=== PATIENT | male | born 1945 | race African-American/Black ===

== ENCOUNTER 2017-06-10 22:17 | Emergency (ER) | payer SELFPAY | END 2017-06-11 00:34 | disposition left against medical advice (07) | LOC: E/R 22:17 | DX: Z53.21 Procedure and treatment not carried out due to patient leaving prior to being seen by health care provider (principal) | CPT/HCPCS: 82962 ==

== ENCOUNTER 2017-06-12 09:58 | Emergency (ER) | payer OTHER ==
[2017-06-12 12:15] LABS: ADD MAN DIFF? NO
[2017-06-12 12:20] LABS: BASOPHILS % 0.9 % (0.0-2.0); EOSINOPHILS # 0.1 10^3/ul (0.0-0.5); EOSINOPHILS % 2.4 % (0.0-7.0); HEMOGLOBIN 14.4 g/dl (14.0-18.0); LYMPHOCYTES # 1.2 10^3/ul (0.8-2.9); LYMPHOCYTES % 26.3 % (15.0-51.0); MEAN CORPUSCULAR HEMOGLOBIN 30.7 pg (29.0-33.0); MEAN CORPUSCULAR HGB CONC 33.5 g/dl (32.0-37.0); MEAN CORPUSCULAR VOLUME 91.7 fl (82.0-101.0); MEAN PLATELET VOLUME 9.5 fl (7.4-10.4); MONOCYTE # 0.4 10^3/ul (0.3-0.9); MONOCYTES % 8.7 % (0.0-11.0); NEUTROPHIL # 2.8 10^3/ul (1.6-7.5); NEUTROPHILS % 61.5 % (39.0-77.0); PLATELET COUNT 239 10^3/UL (140-415); RED BLOOD COUNT 4.69 10^6/ul (4.70-6.10); RED CELL DISTRIBUTION WIDTH 12.8 % (11.5-14.5)
[2017-06-12 12:20] LABS: WHITE BLOOD COUNT 4.6 10^3/ul (4.8-10.8)
[2017-06-12] MEDS: SILVER SULFADIAZINE 1% 25 GM CR TOP (12:23)
[2017-06-12] MEDS: SOD CHLORIDE 0.9% 1,000 ML IV (12:24)
[2017-06-12 12:43] LABS: PROTIME 13.3 Sec (11.9-14.9)
[2017-06-12 12:44] LABS: LACTIC ACID 1.2 mmol/L (0.5-2.0)
[2017-06-12 12:51] LABS: ALANINE AMINOTRANSFERASE 31 IU/L (13-69); ALBUMIN 4.6 g/dl (3.3-4.9); ALBUMIN/GLOBULIN RATIO 1.24; ALKALINE PHOSPHATASE 75 IU/L (42-121); AMYLASE 79 U/L (11-123); ANION GAP 21 (8-16); ASPARTATE AMINO TRANSFERASE 20 IU/L (15-46); BILIRUBIN,INDIRECT 0.3 mg/dl (0-1.1); BILIRUBIN,TOTAL 0.3 mg/dl (0.2-1.3); BLOOD UREA NITROGEN 24 mg/dl (7-20); CARBON DIOXIDE 26 mmol/L (21-31); CHLORIDE 101 mmol/L (97-110); CREATININE 1.18 mg/dl (0.61-1.24); GLUCOSE 231 mg/dl (70-220); LIPASE 93 U/L (23-300); MAGNESIUM 1.7 mg/dl (1.7-2.5); PHOSPHORUS 2.9 mg/dl (2.5-4.9); POTASSIUM 4.3 mmol/L (3.5-5.1); SODIUM 144 mmol/L (135-144); TOTAL PROTEIN 8.3 g/dl (6.1-8.1)
[2017-06-12 14:13] LABS: HEMOGLOBIN A1C 9.5 % (0-5.9)
== END 2017-06-12 14:55 | disposition home or self-care (01) ==
LOC: E/R 09:58
DX: E11.65 Type 2 diabetes mellitus with hyperglycemia (principal); I10 Essential (primary) hypertension; R06.02 Shortness of breath; Z79.84 Long term (current) use of oral hypoglycemic drugs
CPT/HCPCS: 36415; 80053; 82150; 83036; 83605; 83690; 83735; 84100; 85025; 85610; 85730; 93005; 99284-25

== ENCOUNTER 2017-07-23 01:42 | Inpatient (IN) | payer OTHER ==
[2017-07-23 03:42] LABS: ADD MAN DIFF? NO
[2017-07-23] MEDS: SOD CHLORIDE 0.9% 500 ML IV (03:45)
[2017-07-23 03:49] LABS: INR 0.94; PROTIME 12.7 Sec (11.9-14.9)
[2017-07-23 03:50] LABS: PARTIAL THROMBOPLASTIN TIME 28.6 Sec (25.0-35.0)
[2017-07-23 03:53] LABS: ANION GAP 19 (8-16); BASOPHILS % 0.7 % (0.0-2.0); BLOOD UREA NITROGEN 29 mg/dl (7-20); CALCIUM 9.6 mg/dl (8.4-10.2); CARBON DIOXIDE 28 mmol/L (21-31); CHLORIDE 103 mmol/L (97-110); CREATININE 1.73 mg/dl (0.61-1.24); EOSINOPHILS # 0.1 10^3/ul (0.0-0.5); GLUCOSE 206 mg/dl (70-220); HEMOGLOBIN 13.7 g/dl (14.0-18.0); LYMPHOCYTES % 37.1 % (15.0-51.0); MEAN CORPUSCULAR HEMOGLOBIN 30.8 pg (29.0-33.0); MEAN CORPUSCULAR HGB CONC 32.6 g/dl (32.0-37.0); MEAN CORPUSCULAR VOLUME 94.4 fl (82.0-101.0); MEAN PLATELET VOLUME 10.3 fl (7.4-10.4); MONOCYTE # 0.5 10^3/ul (0.3-0.9); NEUTROPHIL # 2.8 10^3/ul (1.6-7.5); PLATELET COUNT 240 10^3/UL (140-415); POTASSIUM 3.8 mmol/L (3.5-5.1); RED BLOOD COUNT 4.45 10^6/ul (4.70-6.10); RED CELL DISTRIBUTION WIDTH 13.4 % (11.5-14.5); SODIUM 146 mmol/L (135-144)
[2017-07-23 03:53] LABS: WHITE BLOOD COUNT 5.5 10^3/ul (4.8-10.8)
[2017-07-23 04:04] LABS: TROPONIN-I 0.024 ng/ml (0.00-0.12)
[2017-07-23] MEDS: SOD CHLORIDE 0.9% 1,000 ML IV (06:53)
[2017-07-23] MEDS: ACETAMINOPHEN 650MG/20.3ML CUP PO ×2 (06:53→13:33)
[2017-07-23] MEDS: PANTOPRAZOLE 40 MG INJ IV (06:53)
[2017-07-23] MEDS: hydrALAzine 20 MG INJ IV (06:54)
[2017-07-23] MEDS: ONDANSETRON 4 MG INJ IV (07:49)
[2017-07-23] MEDS: LEVETIRACETAM 500 MG (PMX) 100 ML IVPB (09:34)
[2017-07-23] MEDS ORDERED: DIPHENHYDRAMINE 25 MG CAP PO (11:00)
[2017-07-23 11:13] LABS: HEMOGLOBIN A1C 7.8 % (0-5.9)
[2017-07-23 13:14] LABS: POTASSIUM,URINE RANDOM 73.2 mmol/L (25-125)
[2017-07-23 13:14] LABS: SODIUM,URINE RANDOM 144 mmol/L (30-90)
[2017-07-23 13:56] LABS: TROPONIN-I 0.031 ng/ml (0.00-0.12)
[2017-07-23 13:57] LABS: OSMOLALITY,URINE 864 mOsm/kg (250-1200)
[2017-07-23] MEDS ORDERED: GLUCOSE GEL 15 GRAM TUBE PO ×2 (15:00)
[2017-07-23] MEDS ORDERED: GLUCAGON 1 MG INJ IM (15:00)
[2017-07-23] MEDS ORDERED: DEXTROSE 50% 50 ML SYRINGE IV ×2 (15:00)
[2017-07-23] MEDS ORDERED: GLUCOSE GEL 15 GRAM TUBE BUCCAL (15:00)
[2017-07-23] MEDS: INSULIN ASPART [NOVOLOG] 3 ML PEN SC ×2 (17:37→21:00)
[2017-07-23 18:59] LABS: TROPONIN-I 0.041 ng/ml (0.00-0.12)
[2017-07-23] MEDS: LORAZEPAM 2 MG INJ IV (23:50)
[2017-07-24] MEDS: SOD CHLORIDE 0.9% 1,000 ML IV ×3 (00:11→16:24)
[2017-07-24] MEDS: LEVETIRACETAM 500 MG (PMX) 100 ML IVPB ×3 (00:11→21:12)
[2017-07-24] MEDS: ACETAMINOPHEN 650MG/20.3ML CUP PO ×2 (00:12→18:09)
[2017-07-24 01:29] LABS: TROPONIN-I 0.035 ng/ml (0.00-0.12)
[2017-07-24 05:21] LABS: ADD MAN DIFF? NO
[2017-07-24] MEDS: PANTOPRAZOLE 40 MG INJ IV (05:25)
[2017-07-24 05:28] LABS: BASOPHILS % 0.9 % (0.0-2.0); EOSINOPHILS # 0.1 10^3/ul (0.0-0.5); EOSINOPHILS % 1.1 % (0.0-7.0); HEMATOCRIT 38.4 % (42.0-52.0); HEMOGLOBIN 12.8 g/dl (14.0-18.0); LYMPHOCYTES # 1.4 10^3/ul (0.8-2.9); LYMPHOCYTES % 31.5 % (15.0-51.0); MEAN CORPUSCULAR HEMOGLOBIN 31.1 pg (29.0-33.0); MEAN CORPUSCULAR HGB CONC 33.3 g/dl (32.0-37.0); MEAN CORPUSCULAR VOLUME 93.4 fl (82.0-101.0); MEAN PLATELET VOLUME 9.8 fl (7.4-10.4); MONOCYTE # 0.4 10^3/ul (0.3-0.9); MONOCYTES % 8.3 % (0.0-11.0); NEUTROPHIL # 2.5 10^3/ul (1.6-7.5); PLATELET COUNT 242 10^3/UL (140-415); RED BLOOD COUNT 4.11 10^6/ul (4.70-6.10); RED CELL DISTRIBUTION WIDTH 13.4 % (11.5-14.5)
[2017-07-24 05:28] LABS: WHITE BLOOD COUNT 4.4 10^3/ul (4.8-10.8)
[2017-07-24 05:48] LABS: CHOLESTEROL 190 mg/dl (100-200)
[2017-07-24 05:48] LABS: CHOL/HDL RATIO 3.7 RATIO; HDL CHOLESTEROL 51 mg/dl (31-75); LDL CHOLESTEROL,CALCULATED 124 mg/dl; TRIGLYCERIDES 75 mg/dl (0-149)
[2017-07-24 05:50] LABS: URIC ACID 7.1 mg/dl (3.1-7.9)
[2017-07-24 05:54] LABS: ALBUMIN 3.8 g/dl (3.3-4.9); ANION GAP 16 (8-16); BLOOD UREA NITROGEN 18 mg/dl (7-20); CALCIUM 9.1 mg/dl (8.4-10.2); CARBON DIOXIDE 27 mmol/L (21-31); CHLORIDE 105 mmol/L (97-110); CREATININE 1.18 mg/dl (0.61-1.24); GLUCOSE 152 mg/dl (70-220); MAGNESIUM 1.6 mg/dl (1.7-2.5); PHOSPHORUS 3.2 mg/dl (2.5-4.9); POTASSIUM 3.6 mmol/L (3.5-5.1); SODIUM 144 mmol/L (135-144)
[2017-07-24] MEDS: INSULIN ASPART [NOVOLOG] 3 ML PEN SC ×4 (07:35→21:00)
[2017-07-24] MEDS: MAGNESIUM SULFATE 2 GM/50 ML 50 ML IVPB (09:23)
[2017-07-24] MEDS: POTASSIUM CHLORIDE (SR) 20 MEQ TAB PO (09:24)
[2017-07-25] MEDS: PANTOPRAZOLE 40 MG INJ IV (06:23)
[2017-07-25 06:35] LABS: ADD MAN DIFF? NO
[2017-07-25 06:45] LABS: ALBUMIN 3.7 g/dl (3.3-4.9); ANION GAP 15 (8-16); BLOOD UREA NITROGEN 14 mg/dl (7-20); CALCIUM 8.8 mg/dl (8.4-10.2); CARBON DIOXIDE 27 mmol/L (21-31); CHLORIDE 104 mmol/L (97-110); CREATININE 1.15 mg/dl (0.61-1.24); GLUCOSE 129 mg/dl (70-220); MAGNESIUM 1.9 mg/dl (1.7-2.5); PHOSPHORUS 2.4 mg/dl (2.5-4.9); POTASSIUM 3.8 mmol/L (3.5-5.1); SODIUM 142 mmol/L (135-144)
[2017-07-25] MEDS ORDERED: POLYMYXIN/BACITRACIN 1L IRRIG (06:59)
[2017-07-25] MEDS ORDERED: CEFAZOLIN 1 GM INJ (07:00)
[2017-07-25] MEDS: INSULIN ASPART [NOVOLOG] 3 ML PEN SC ×4 (07:35→21:00)
[2017-07-25] MEDS ORDERED: ROCURONIUM 50 MG INJ (07:55)
[2017-07-25] MEDS ORDERED: MIDAZOLAM 1 MG/ML 2 ML INJ (07:55)
[2017-07-25] MEDS ORDERED: PROPOFOL 20 ML (07:55)
[2017-07-25] MEDS ORDERED: PHENYLephrine (100 MCG/ML) 5ML SYG ×3 (08:12→09:27)
[2017-07-25] MEDS ORDERED: ONDANSETRON 4 MG INJ (08:48)
[2017-07-25] MEDS ORDERED: METOCLOPRAMIDE 10 MG INJ (08:48)
[2017-07-25] MEDS ORDERED: DEXAMETHASONE 4 MG/ML 1 ML INJ (08:48)
[2017-07-25] MEDS ORDERED: SUGAMMADEX SODIUM 200 MG/2 ML VIAL IV (08:48)
[2017-07-25] MEDS ORDERED: ACETAMINOPHEN 1000MG/100ML IV 100 ML (08:48)
[2017-07-25] MEDS: THROMBIN 5000 UNIT VIAL (08:50)
[2017-07-25] MEDS: LIDOCAINE 0.5% (MDV) 50 ML INJ (08:51)
[2017-07-25] MEDS: BUPIVACAINE 0.25%/EPI (SDV) 30 ML INJ INJ (08:52)
[2017-07-25] MEDS: POLYMYXIN/BACITRACIN 1L IRRIG (09:51)
[2017-07-25] MEDS: GELATIN SIZE 100 SPONGE TOP (09:52)
[2017-07-25] MEDS: BACITRACIN/POLYMYXIN 28.35 GM OINT TOP (09:52)
[2017-07-25] MEDS ORDERED: hydrALAzine 20 MG INJ (09:54)
[2017-07-25] MEDS ORDERED: LABETALOL HCL 20MG INJ (09:55)
[2017-07-25] MEDS ORDERED: morphine 2 MG INJ IV ×2 (10:00)
[2017-07-25] MEDS ORDERED: METOCLOPRAMIDE 10 MG INJ IV (10:00)
[2017-07-25] MEDS ORDERED: DIPHENHYDRAMINE 50 MG INJ IV (10:00)
[2017-07-25] MEDS ORDERED: EPHEDrine SULFATE 50 MG/5 ML SYG IV (10:00)
[2017-07-25] MEDS ORDERED: MEPERIDINE 25 MG INJ IV (10:00)
[2017-07-25] MEDS ORDERED: morphine 10 MG INJ IV (10:00)
[2017-07-25] MEDS ORDERED: ONDANSETRON 4 MG INJ IV (10:00)
[2017-07-25] MEDS ORDERED: FENTAnyl 50 MCG/ML VIAL IV ×3 (10:00)
[2017-07-25] MEDS ORDERED: LABETALOL HCL 20MG INJ IV (10:00)
[2017-07-25] MEDS ORDERED: hydrALAzine 20 MG INJ IV (10:00)
[2017-07-25] MEDS ORDERED: BISACODYL 10 MG SUPP PR (10:30)
[2017-07-25] MEDS ORDERED: HYDROmorphONE 0.5 MG/0.5 ML SYG IV (10:30)
[2017-07-25] MEDS ORDERED: NALOXONE (0.4 MG/ML) INJ IV (10:30)
[2017-07-25] MEDS: LEVETIRACETAM 500 MG (PMX) 100 ML IVPB ×2 (10:40→21:32)
[2017-07-25] MEDS: SOD CHLORIDE 0.9% 1,000 ML IV ×2 (10:41→20:58)
[2017-07-25 10:43] LABS: WHITE BLOOD COUNT 4.3 10^3/ul (4.8-10.8)
[2017-07-25 10:43] LABS: BASOPHILS % 0.7 % (0.0-2.0); EOSINOPHILS # 0.1 10^3/ul (0.0-0.5); EOSINOPHILS % 1.9 % (0.0-7.0); LYMPHOCYTES # 1.3 10^3/ul (0.8-2.9); LYMPHOCYTES % 30.7 % (15.0-51.0); MEAN CORPUSCULAR HEMOGLOBIN 31.6 pg (29.0-33.0); MEAN CORPUSCULAR HGB CONC 33.3 g/dl (32.0-37.0); MEAN CORPUSCULAR VOLUME 94.7 fl (82.0-101.0); MEAN PLATELET VOLUME 10.3 fl (7.4-10.4); MONOCYTE # 0.4 10^3/ul (0.3-0.9); MONOCYTES % 9.1 % (0.0-11.0); NEUTROPHIL # 2.5 10^3/ul (1.6-7.5); NEUTROPHILS % 57.4 % (39.0-77.0); PLATELET COUNT 241 10^3/UL (140-415); RED BLOOD COUNT 4.12 10^6/ul (4.70-6.10); RED CELL DISTRIBUTION WIDTH 13.3 % (11.5-14.5)
[2017-07-25] MEDS: CEFAZOLIN 1 GM/50 ML (PMX) 50 ML IVPB ×2 (11:41→17:42)
[2017-07-25] MEDS: NEOMYC/POLYMYX/BACIT 30 GM OINT TOP ×2 (14:06→21:32)
[2017-07-25] MEDS: hydrALAzine 20 MG INJ IV (18:46)
[2017-07-25] MEDS: DOCUSATE SODIUM 100 MG CAP PO (21:32)
[2017-07-26] MEDS: CEFAZOLIN 1 GM/50 ML (PMX) 50 ML IVPB (02:13)
[2017-07-26] MEDS: ACETAMINOPHEN 650MG/20.3ML CUP PO ×2 (04:26→16:35)
[2017-07-26 05:07] LABS: ADD MAN DIFF? NO
[2017-07-26 05:12] LABS: WHITE BLOOD COUNT 5.9 10^3/ul (4.8-10.8)
[2017-07-26 05:12] LABS: BASOPHILS % 0.2 % (0.0-2.0); HEMATOCRIT 33.6 % (42.0-52.0); HEMOGLOBIN 11.3 g/dl (14.0-18.0); LYMPHOCYTES % 17.1 % (15.0-51.0); MEAN CORPUSCULAR HEMOGLOBIN 31.3 pg (29.0-33.0); MEAN CORPUSCULAR HGB CONC 33.6 g/dl (32.0-37.0); MEAN CORPUSCULAR VOLUME 93.1 fl (82.0-101.0); MONOCYTE # 0.6 10^3/ul (0.3-0.9); MONOCYTES % 10.3 % (0.0-11.0); NEUTROPHIL # 4.3 10^3/ul (1.6-7.5); NEUTROPHILS % 72.2 % (39.0-77.0); PLATELET COUNT 225 10^3/UL (140-415); RED BLOOD COUNT 3.61 10^6/ul (4.70-6.10); RED CELL DISTRIBUTION WIDTH 13.2 % (11.5-14.5)
[2017-07-26 05:32] LABS: ALBUMIN 3.2 g/dl (3.3-4.9); ANION GAP 13 (8-16); BLOOD UREA NITROGEN 16 mg/dl (7-20); CARBON DIOXIDE 25 mmol/L (21-31); CHLORIDE 107 mmol/L (97-110); CREATININE 1.16 mg/dl (0.61-1.24); GLUCOSE 141 mg/dl (70-220); MAGNESIUM 1.8 mg/dl (1.7-2.5); POTASSIUM 3.7 mmol/L (3.5-5.1); SODIUM 141 mmol/L (135-144)
[2017-07-26] MEDS: PANTOPRAZOLE 40 MG INJ IV (06:20)
[2017-07-26] MEDS: INSULIN ASPART [NOVOLOG] 3 ML PEN SC ×4 (07:58→21:00)
[2017-07-26] MEDS: DOCUSATE SODIUM 100 MG CAP PO ×2 (09:06→21:14)
[2017-07-26] MEDS: LEVETIRACETAM 500 MG (PMX) 100 ML IVPB ×2 (09:06→21:14)
[2017-07-26] MEDS: NEOMYC/POLYMYX/BACIT 30 GM OINT TOP ×2 (09:06→21:14)
[2017-07-26] MEDS: SOD CHLORIDE 0.9% 1,000 ML IV ×2 (09:07→16:36)
[2017-07-26] MEDS: hydrALAzine 20 MG INJ IV ×2 (16:35→22:01)
[2017-07-26] MEDS: ONDANSETRON 4 MG INJ IV (20:39)
[2017-07-27] MEDS: ACETAMINOPHEN 650MG/20.3ML CUP PO ×3 (00:10→20:11)
[2017-07-27] MEDS: hydrALAzine 20 MG INJ IV (04:06)
[2017-07-27] MEDS: HYDROCODONE/APAP (10/325) TAB PO (04:51)
[2017-07-27] MEDS: PANTOPRAZOLE 40 MG INJ IV (05:46)
[2017-07-27] MEDS: ONDANSETRON 4 MG INJ IV ×2 (05:47→08:47)
[2017-07-27 06:22] LABS: ADD MAN DIFF? NO
[2017-07-27 06:36] LABS: BASOPHILS % 0.2 % (0.0-2.0); EOSINOPHILS % 0.4 % (0.0-7.0); HEMATOCRIT 36.8 % (42.0-52.0); HEMOGLOBIN 12.2 g/dl (14.0-18.0); LYMPHOCYTES # 1.5 10^3/ul (0.8-2.9); LYMPHOCYTES % 26.6 % (15.0-51.0); MEAN CORPUSCULAR HEMOGLOBIN 30.8 pg (29.0-33.0); MEAN CORPUSCULAR HGB CONC 33.2 g/dl (32.0-37.0); MEAN CORPUSCULAR VOLUME 92.9 fl (82.0-101.0); MEAN PLATELET VOLUME 10.4 fl (7.4-10.4); MONOCYTE # 0.5 10^3/ul (0.3-0.9); MONOCYTES % 9.5 % (0.0-11.0); NEUTROPHIL # 3.5 10^3/ul (1.6-7.5); NEUTROPHILS % 63.1 % (39.0-77.0); PLATELET COUNT 251 10^3/UL (140-415); RED BLOOD COUNT 3.96 10^6/ul (4.70-6.10); RED CELL DISTRIBUTION WIDTH 13.2 % (11.5-14.5)
[2017-07-27 06:36] LABS: WHITE BLOOD COUNT 5.6 10^3/ul (4.8-10.8)
[2017-07-27 06:55] LABS: ALBUMIN 3.5 g/dl (3.3-4.9); ANION GAP 21 (8-16); BLOOD UREA NITROGEN 13 mg/dl (7-20); CALCIUM 8.4 mg/dl (8.4-10.2); CARBON DIOXIDE 22 mmol/L (21-31); CHLORIDE 104 mmol/L (97-110); CREATININE 1.06 mg/dl (0.61-1.24); GLUCOSE 151 mg/dl (70-220); MAGNESIUM 1.8 mg/dl (1.7-2.5); POTASSIUM 3.9 mmol/L (3.5-5.1); SODIUM 143 mmol/L (135-144)
[2017-07-27] MEDS: INSULIN ASPART [NOVOLOG] 3 ML PEN SC ×4 (07:35→21:00)
[2017-07-27] MEDS: DOCUSATE SODIUM 100 MG CAP PO ×2 (08:47→20:11)
[2017-07-27] MEDS: LEVETIRACETAM 500 MG (PMX) 100 ML IVPB ×2 (08:48→20:11)
[2017-07-27] MEDS: NEOMYC/POLYMYX/BACIT 30 GM OINT TOP ×2 (08:53→20:11)
[2017-07-28] MEDS: PANTOPRAZOLE 40 MG INJ IV (05:47)
[2017-07-28 05:54] LABS: ADD MAN DIFF? NO
[2017-07-28 06:05] LABS: WHITE BLOOD COUNT 4.5 10^3/ul (4.8-10.8)
[2017-07-28 06:05] LABS: BASOPHILS % 0.7 % (0.0-2.0); EOSINOPHILS # 0.1 10^3/ul (0.0-0.5); EOSINOPHILS % 1.6 % (0.0-7.0); HEMATOCRIT 39.2 % (42.0-52.0); HEMOGLOBIN 13.1 g/dl (14.0-18.0); LYMPHOCYTES # 1.5 10^3/ul (0.8-2.9); LYMPHOCYTES % 33.9 % (15.0-51.0); MEAN CORPUSCULAR HGB CONC 33.4 g/dl (32.0-37.0); MEAN CORPUSCULAR VOLUME 92.7 fl (82.0-101.0); MEAN PLATELET VOLUME 9.8 fl (7.4-10.4); MONOCYTE # 0.5 10^3/ul (0.3-0.9); MONOCYTES % 11.8 % (0.0-11.0); NEUTROPHIL # 2.3 10^3/ul (1.6-7.5); NEUTROPHILS % 51.8 % (39.0-77.0); PLATELET COUNT 257 10^3/UL (140-415); RED BLOOD COUNT 4.23 10^6/ul (4.70-6.10); RED CELL DISTRIBUTION WIDTH 13.2 % (11.5-14.5)
[2017-07-28 06:49] LABS: ALBUMIN 3.5 g/dl (3.3-4.9); ANION GAP 13 (8-16); BLOOD UREA NITROGEN 13 mg/dl (7-20); CALCIUM 8.8 mg/dl (8.4-10.2); CARBON DIOXIDE 27 mmol/L (21-31); CHLORIDE 107 mmol/L (97-110); CREATININE 1.08 mg/dl (0.61-1.24); GLUCOSE 198 mg/dl (70-220); PHOSPHORUS 2.4 mg/dl (2.5-4.9); POTASSIUM 3.5 mmol/L (3.5-5.1); SODIUM 143 mmol/L (135-144)
[2017-07-28] MEDS: INSULIN ASPART [NOVOLOG] 3 ML PEN SC ×4 (08:49→21:00)
[2017-07-28] MEDS: DOCUSATE SODIUM 100 MG CAP PO ×2 (08:52→21:11)
[2017-07-28] MEDS: LISINOPRIL 20 MG TAB PO (08:52)
[2017-07-28] MEDS: LEVETIRACETAM 500 MG (PMX) 100 ML IVPB (08:53)
[2017-07-28] MEDS: AMLODIPINE 10 MG TAB PO (08:53)
[2017-07-28] MEDS ORDERED: HYDROCODONE/APAP (5/325) TAB PO (10:00)
[2017-07-28] MEDS: NEOMYC/POLYMYX/BACIT 30 GM OINT TOP ×2 (10:00→21:14)
[2017-07-28] MEDS: ACETAMINOPHEN 650MG/20.3ML CUP PO (17:39)
[2017-07-28] MEDS: LEVETIRACETAM 500 MG TAB PO (21:10)
[2017-07-29] MEDS: ACETAMINOPHEN 650MG/20.3ML CUP PO ×2 (00:24→21:01)
[2017-07-29] MEDS: PANTOPRAZOLE (EC) 40 MG TAB PO (06:32)
[2017-07-29] MEDS: DOCUSATE SODIUM 100 MG CAP PO ×2 (08:46→21:01)
[2017-07-29] MEDS: AMLODIPINE 10 MG TAB PO (08:46)
[2017-07-29] MEDS: LEVETIRACETAM 500 MG TAB PO ×2 (08:46→21:01)
[2017-07-29] MEDS: LISINOPRIL 20 MG TAB PO (08:46)
[2017-07-29] MEDS: NEOMYC/POLYMYX/BACIT 30 GM OINT TOP ×2 (08:47→22:00)
[2017-07-29] MEDS: INSULIN ASPART [NOVOLOG] 3 ML PEN SC ×4 (09:11→21:08)
[2017-07-29 09:25] LABS: ADD MAN DIFF? NO
[2017-07-29 09:35] LABS: BASOPHILS % 0.8 % (0.0-2.0); EOSINOPHILS # 0.2 10^3/ul (0.0-0.5); EOSINOPHILS % 3.3 % (0.0-7.0); HEMATOCRIT 38.2 % (42.0-52.0); HEMOGLOBIN 12.9 g/dl (14.0-18.0); LYMPHOCYTES # 1.8 10^3/ul (0.8-2.9); LYMPHOCYTES % 37.3 % (15.0-51.0); MEAN CORPUSCULAR HGB CONC 33.8 g/dl (32.0-37.0); MEAN CORPUSCULAR VOLUME 91.8 fl (82.0-101.0); MEAN PLATELET VOLUME 9.6 fl (7.4-10.4); MONOCYTE # 0.5 10^3/ul (0.3-0.9); NEUTROPHIL # 2.3 10^3/ul (1.6-7.5); NEUTROPHILS % 47.4 % (39.0-77.0); PLATELET COUNT 255 10^3/UL (140-415); RED BLOOD COUNT 4.16 10^6/ul (4.70-6.10); RED CELL DISTRIBUTION WIDTH 12.8 % (11.5-14.5)
[2017-07-29 09:35] LABS: WHITE BLOOD COUNT 4.8 10^3/ul (4.8-10.8)
[2017-07-29] MEDS: hydrALAzine 20 MG INJ IV (11:35)
[2017-07-29 12:17] LABS: ALBUMIN 3.5 g/dl (3.3-4.9); ANION GAP 14 (8-16); BLOOD UREA NITROGEN 16 mg/dl (7-20); CALCIUM 8.9 mg/dl (8.4-10.2); CARBON DIOXIDE 29 mmol/L (21-31); CHLORIDE 100 mmol/L (97-110); CREATININE 1.03 mg/dl (0.61-1.24); GLUCOSE 139 mg/dl (70-220); PHOSPHORUS 2.7 mg/dl (2.5-4.9); POTASSIUM 4.2 mmol/L (3.5-5.1); SODIUM 139 mmol/L (135-144)
[2017-07-29] MEDS: CLONIDINE 0.1 MG/24 HR PATCH TRANSDERM (13:31)
[2017-07-30] MEDS: PANTOPRAZOLE (EC) 40 MG TAB PO (05:31)
[2017-07-30] MEDS: AMLODIPINE 10 MG TAB PO ×2 (07:40→08:08)
[2017-07-30 07:57] LABS: ADD MAN DIFF? NO
[2017-07-30 08:04] LABS: BASOPHILS % 0.7 % (0.0-2.0); EOSINOPHILS # 0.1 10^3/ul (0.0-0.5); HEMATOCRIT 37.6 % (42.0-52.0); HEMOGLOBIN 12.8 g/dl (14.0-18.0); LYMPHOCYTES # 1.7 10^3/ul (0.8-2.9); LYMPHOCYTES % 38.6 % (15.0-51.0); MONOCYTE # 0.5 10^3/ul (0.3-0.9); MONOCYTES % 10.9 % (0.0-11.0); NEUTROPHILS % 46.3 % (39.0-77.0); PLATELET COUNT 268 10^3/UL (140-415); RED BLOOD COUNT 4.13 10^6/ul (4.70-6.10); RED CELL DISTRIBUTION WIDTH 13.1 % (11.5-14.5)
[2017-07-30 08:04] LABS: WHITE BLOOD COUNT 4.3 10^3/ul (4.8-10.8)
[2017-07-30] MEDS: LISINOPRIL 20 MG TAB PO (08:06)
[2017-07-30] MEDS: NEOMYC/POLYMYX/BACIT 30 GM OINT TOP ×2 (08:06→21:39)
[2017-07-30] MEDS: DOCUSATE SODIUM 100 MG CAP PO ×2 (08:06→21:00)
[2017-07-30] MEDS: LEVETIRACETAM 500 MG TAB PO ×2 (08:06→21:38)
[2017-07-30] MEDS: INSULIN ASPART [NOVOLOG] 3 ML PEN SC ×4 (08:06→21:00)
[2017-07-30 08:24] LABS: ANION GAP 11 (8-16); BLOOD UREA NITROGEN 16 mg/dl (7-20); CALCIUM 9.1 mg/dl (8.4-10.2); CARBON DIOXIDE 32 mmol/L (21-31); CHLORIDE 102 mmol/L (97-110); CREATININE 0.99 mg/dl (0.61-1.24); GLUCOSE 154 mg/dl (70-220); MAGNESIUM 1.7 mg/dl (1.7-2.5); POTASSIUM 3.3 mmol/L (3.5-5.1); SODIUM 142 mmol/L (135-144)
[2017-07-30] MEDS: POTASSIUM CHLORIDE (SR) 20 MEQ TAB PO (12:28)
[2017-07-31] MEDS: PANTOPRAZOLE (EC) 40 MG TAB PO (05:32)
[2017-07-31] MEDS: INSULIN ASPART [NOVOLOG] 3 ML PEN SC ×2 (07:59→12:04)
[2017-07-31] MEDS: DOCUSATE SODIUM 100 MG CAP PO (08:24)
[2017-07-31] MEDS: AMLODIPINE 10 MG TAB PO (08:24)
[2017-07-31] MEDS: NEOMYC/POLYMYX/BACIT 30 GM OINT TOP (08:24)
[2017-07-31] MEDS: LISINOPRIL 20 MG TAB PO (08:24)
[2017-07-31] MEDS: LEVETIRACETAM 500 MG TAB PO (08:24)
== END 2017-07-31 17:33 | disposition home health service (06) | DRG 25 ==
LOC: E/R 01:42 → MS4 07-28 23:37 → ICU 05:41
PROC: 009430Z Drainage of Intracranial Subdural Space with Drainage Device, Percutaneous Approach (ICD-10-PCS; principal; 2017-07-25 07:30)
DX: S06.5X1A Traumatic subdural hemorrhage with loss of consciousness of 30 minutes or less, initial encounter (principal); G93.5 Compression of brain; N17.9 Acute kidney failure, unspecified; E87.0 Hyperosmolality and hypernatremia; G81.94 Hemiplegia, unspecified affecting left nondominant side; I42.9 Cardiomyopathy, unspecified; E87.8 Other disorders of electrolyte and fluid balance, not elsewhere classified; E11.9 Type 2 diabetes mellitus without complications; E78.5 Hyperlipidemia, unspecified; I10 Essential (primary) hypertension; I25.10 Atherosclerotic heart disease of native coronary artery without angina pectoris; R55 Syncope and collapse; W18.30XA Fall on same level, unspecified, initial encounter; Z87.891 Personal history of nicotine dependence; Z79.84 Long term (current) use of oral hypoglycemic drugs
CPT/HCPCS: 36415; 70450; 70551; 71045; 76775; 80048; 80061; 80069; 81003; 82962; 83036; 83735; 83935; 84100; 84133; 84300; 84484; 84560; 85025; 85610; 85730; 86850; 86900; 86901; 87081; 89190; 92526; 92610; 93005; 93306; 96374; 96375; 97163; 97164; 97165; 97166; 97168; 97530; 99291-25